=== PATIENT | female | born 1990 | race Caucasian/White ===

== ENCOUNTER 2016-12-22 22:12 | Emergency (ER) | payer SELFPAY ==
[~2016-12-22] VITALS: Ht 160 cm; Wt 52.0 kg
[~2016-12-22 22:12] MED LIST: BUTA1CAP PO; FERR325T PO; IBUP-232 PO
[2016-12-22 22:18] VITALS: BP 134/71; PULSE 126; RESP 18; O2SAT 96
== END 2016-12-22 22:27 | disposition left against medical advice (07) ==
LOC: PHED 22:12
DX: R11.10 Vomiting, unspecified (principal); R10.9 Unspecified abdominal pain
CPT/HCPCS: 99281

== ENCOUNTER 2017-01-26 15:45 | Emergency (ER) | payer MEDICAID ==
[~2017-01-26] VITALS: Ht 162.6 cm; Wt 49.3 kg
[2017-01-26 15:50] VITALS: BP 114/80; PULSE 87; RESP 16; TEMP 97.9; O2SAT 99
[2017-01-26] MEDS ORDERED: SODIUM CHLOR 0.9% 1000 ML INJ 1,000 ML IV SCH (16:11)
[2017-01-26] MEDS ORDERED: SODIUM CHLORIDE 0.9% FLUSH 10 ML FLUSH IV FLUSH PRN (16:15)
--- NOTE | 2017-01-26 16:17 | PD ---
HPI Chief Complaint: Abdominal Pain Time Seen by Provider: 16:07 Travel History International Travel<30 days: No Contact w/Intl Traveler<30days: No Traveled to known affect area: No History of Present Illness HPI 26-year-old female with history of migraine headaches, seizures, presents to the ER today because she has had a one-month history of intermittent headaches, nausea, lightheadedness, right lower quadrant abdominal pains intermittently, and general weakness. She states that the headaches are not unusual for her. Headache is currently an 8 out of 10. She denies any stiff neck, fevers, diarrhea, or any other symptoms. She does not know any exacerbating or alleviating factors. Her states that she had a baby in September and had been told that she was anemic, and has recently been retaking her iron pills and vitamins, but states that the headaches are not getting better. Modifying Factors: None Associated Signs & Symptoms: Intermittent headaches, nausea, lightheadedness, right sided abdominal discomfort, general weakness Risk Factors: History of migraine headaches PFSH Past Medical History Blood Disorders: No Anxiety: Yes Depression: Yes Diminished Hearing: No Neurologic: Yes (SEIZURE 10/11/14) Seizures: Yes Influenza Vaccination: Yes ?: Not LMP: 01/22/17 : 2 Para: 2 Past Surgical History Eye Surgery: Yes (LEFT PROSTHETIC) Social History Alcohol Use: No Tobacco Use: Yes (1-2 cigs/day) Substance Use: No Allergies-Medications (Allergen,Severity, Reaction): Coded Allergies: Fioricet (Verified Allergy, Intermediate, mood swings, combativness, ) Phenergan (Verified Allergy, Unknown, 01/26/17) Reglan (Verified Allergy, Unknown, 01/26/17) Reported Meds & Prescriptions Reported Meds & Active Scripts Active No Active Prescriptions or Reported Medications Review of Systems Except as stated in HPI: all other systems reviewed are Neg Physical Exam Narrative GENERAL: Young white female patient currently none acute distress. She is awake , alert, oriented 3. Well-developed. No photophobia. SKIN: Focused skin assessment warm/dry. HEAD: Atraumatic. Normocephalic. EYES: Left eye prosthesis. No scleral icterus. No injection or drainage. ENT: No nasal bleeding or discharge. Mucous membranes pink and moist. NECK: Trachea midline. No JVD. CARDIOVASCULAR: Regular rate and rhythm. No murmur appreciated. RESPIRATORY: No accessory muscle use. Clear to auscultation. Breath sounds equal bilaterally. GASTROINTESTINAL: Abdomen soft, non-tender, nondistended. Hepatic and splenic margins not palpable. Benign. MUSCULOSKELETAL: No obvious deformities. No clubbing. No cyanosis. No edema. NEUROLOGICAL: Awake and alert. No obvious cranial nerve deficits. Motor grossly within normal limits. Normal speech. PSYCHIATRIC: Appropriate mood and affect; insight and judgment normal. Data Data Last Documented VS Vital Signs Date Time Temp Pulse Resp B/P Pulse Ox O2 Delivery O2 Flow Rate FiO2 01/26/17 16:30 96 Room Air 01/26/17 15:50 97.9 87 16 114/80 Orders Complete Blood Count With Diff (01/26/17 16:11) Comprehensive Metabolic Panel (01/26/17 16:11) Lipase (01/26/17 16:11) Urinalysis - C+S If Indicated (01/26/17 16:11) Iv Access Insert/Monitor (01/26/17 16:11) Ecg Monitoring (01/26/17 16:11) Oximetry (01/26/17 16:11) Sodium Chlor 0.9% 1000 Ml Inj (Ns 1000 M (01/26/17 16:11) Sodium Chloride 0.9% Flush (Ns Flush) (01/26/17 16:15) Ed Urine Pregnancytest Poc (01/26/17 16:11) Ketorolac Inj (Toradol Inj) (01/26/17 17:00) Labs Laboratory Tests Test 01/26/17 01/26/17 16:23 16:28 Urine Color YELLOW Urine Turbidity CLEAR Urine pH 6.0 Urine Specific [place] 1.007 Urine Protein NEG mg/dL Urine Glucose (UA) NEG mg/dL Urine Ketones NEG mg/dL Urine Occult Blood LARGE Urine Nitrite NEG Urine Bilirubin NEG Urine Leukocyte Esterase NEG Urine WBC 0-2 /hpf Urine Squamous Epithelial 0-5 /hpf Cells Microscopic Urinalysis Comment CULT NOT INDICATED White Blood Count 10.1 TH/MM3 Red Blood Count 3.96 MIL/MM3 Hemoglobin 12.3 GM/DL Hematocrit 35.8 % Mean Corpuscular Volume 90.6 FL Mean Corpuscular Hemoglobin 31.1 PG Mean Corpuscular Hemoglobin 34.3 % Concent Red Cell Distribution Width 13.6 % Platelet Count 299 TH/MM3 Mean Platelet Volume 7.6 FL Neutrophils (%) (Auto) 52.8 % Lymphocytes (%) (Auto) 40.3 % Monocytes (%) (Auto) 4.1 % Eosinophils (%) (Auto) 0.6 % Basophils (%) (Auto) 2.2 % Neutrophils # (Auto) 5.3 TH/MM3 Lymphocytes # (Auto) 4.1 TH/MM3 Monocytes # (Auto) 0.4 TH/MM3 Eosinophils # (Auto) 0.1 TH/MM3 Basophils # (Auto) 0.2 TH/MM3 CBC Comment DIFF FINAL Differential Comment Sodium Level 140 MEQ/L Potassium Level 3.8 MEQ/L Chloride Level 105 MEQ/L Carbon Dioxide Level 25.1 MEQ/L Anion Gap 10 MEQ/L Blood Urea Nitrogen 11 MG/DL Creatinine 0.67 MG/DL Estimat Glomerular Filtration 107 ML/MIN Rate Random Glucose 88 MG/DL Calcium Level 8.8 MG/DL Total Bilirubin 0.3 MG/DL Aspartate Amino Transf 14 U/L (AST/SGOT) Alanine Aminotransferase 15 U/L (ALT/SGPT) Alkaline Phosphatase 58 U/L Total Protein 7.7 GM/DL Albumin 4.0 GM/DL Lipase 194 U/L MDM Medical Decision Making Medical Screen Exam Complete: Yes Emergency Medical Condition: Yes Medical Record Reviewed: Yes Interpretation(s) Laboratory Tests Test 01/26/17 01/26/17 16:23 16:28 Urine Occult Blood LARGE (NEG) Red Blood Count 3.96 MIL/MM3 (4.00-5.30) Basophils (%) (Auto) 2.2 % (0.0-2.0) Aspartate Amino Transf 14 U/L (15-37) (AST/SGOT) Differential Diagnosis Headaches, nausea, malaise, right sided abdominal painmigraine headaches versus viral syndrome versus UTI versus acute intra-abdominal processes Narrative Course Abdomen is benign and I do not suspect an acute intra-abdominal process. Her lab work did not show significant signs of dehydration, electrolyte abnormalities, or significant anemia. At this point, my plan would be to release her with follow-up to primary care physician. Return for any worsening in symptoms as necessary. She was given Toradol, and IV fluids in the ER and had no further episodes of vomiting in the ER. Symptoms are likely secondary to migraine headaches. Return for any worsening in symptoms as necessary. The plan has been discussed with her and she states understanding. Diagnosis Primary Impression: Migraine headache Med/Other Pt SpecificInfo: Prescription(s) given Scripts Ondansetron Odt (Zofran Odt)4 Mg Tab4 Mg SL Q6HR PRN (Nausea/Vomiting) #7 TAB Ref 0 Prov:Saw Norton MD 01/26/17 Ibuprofen (Motrin Ib)200 Mg [id number] Mg PO Q6H PRN (PAIN SCALE 1 TO 10) #21 TAB Ref 0 Prov:Swa Norton MD 01/26/17 Disposition: 01 DISCHARGE HOME Condition: Stable Saw Norton MD Jan 26, 2017 16:17
[2017-01-26 16:30] VITALS: O2SAT 96
[2017-01-26 16:40] LABS: AUTOMATED NEUTROPHIL # 5.3 TH/MM3 (1.8-7.7); BASOPHIL # 0.2 TH/MM3 (0-0.2); BASOPHIL % 2.2 % (0.0-2.0); EOSINOPHIL # 0.1 TH/MM3 (0-0.4); EOSINOPHIL % 0.6 % (0.0-4.0); HEMATOCRIT 35.8 % (35.0-46.0); HEMO FLAGS DIFF FINAL; LYMPH % 40.3 % (9.0-44.0); LYMPHOCYTE # 4.1 TH/MM3 (1.0-4.8); MEAN CELL VOLUME 90.6 FL (80.0-100.0); MEAN CORPUSCULAR HEMOGLOBIN 31.1 PG (27.0-34.0); MEAN CORPUSCULAR HGB CONC 34.3 % (32.0-36.0); MONO % 4.1 % (0.0-8.0); NEUT % 52.8 % (16.0-70.0); PLATELET COUNT 299 TH/MM3 (150-450); RED BLOOD COUNT 3.96 MIL/MM3 (4.00-5.30); RED CELL DISTRIBUTION WIDTH 13.6 % (11.6-17.2); WHITE BLOOD COUNT 10.1 TH/MM3 (4.0-11.0)
[2017-01-26 16:41] LABS: BLOOD, URINE LARGE (NEG); GLUCOSE,URINE NEG (NEG); KETONE, URINE NEG (NEG); NITRITE,URINE NEG (NEG)
[2017-01-26 16:47] LABS: CHLORIDE 105 MEQ/L (98-107); POTASSIUM 3.8 MEQ/L (3.5-5.1); SODIUM (NA) 140 MEQ/L (136-145)
[2017-01-26 16:51] LABS: ANION GAP 10 MEQ/L (5-15); BICARBONATE 25.1 MEQ/L (21.0-32.0); BLOOD UREA NITROGEN 11 MG/DL (7-18)
[2017-01-26 16:53] LABS: URINE COLOR YELLOW (YELLW/STRAW)
[2017-01-26 16:54] LABS: ALT (GPT) 15 U/L (10-53); AST (GOT) 14 U/L (15-37); GLOMERULAR FILTRATION RATE 107 ML/MIN (>89)
[2017-01-26 16:55] LABS: TOTAL BILIRUBIN ADULT 0.3 MG/DL (0.2-1.0)
[2017-01-26 16:55] LABS: COMMENT (UR) CULT NOT INDICATED; CULTURE IF INDICATED CULT NOT INDICATED; SQUAMOUS EPITHELIAL CELL URINE 0-5 /hpf (0-5); WBC, URINE 0-2 /hpf (0-5)
[2017-01-26 16:57] LABS: ALKALINE PHOSPHATASE 58 U/L (45-117)
[2017-01-26] MEDS ORDERED: KETOROLAC TROMETHAMINE 30 MG/ML (IVP) VIAL IV PUSH ONE (17:00)
[2017-01-26] MEDS ORDERED: ZOFR4TAB3 SL (17:10)
[2017-01-26] MEDS ORDERED: MOTR200T4 PO (17:10)
== END 2017-01-26 17:33 | disposition home or self-care (01) ==
LOC: PHED 15:45
DX: G43.909 Migraine, unspecified, not intractable, without status migrainosus (principal); F17.210 Nicotine dependence, cigarettes, uncomplicated; F41.8 Other specified anxiety disorders
CPT/HCPCS: 80053; 81001; 83690; 84703; 85025; 96361; 96374; 99284; J1885; J7030

== ENCOUNTER 2017-09-27 12:41 | Emergency (ER) | payer SELFPAY ==
[~2017-09-27] VITALS: Ht 161.3 cm; Wt 48.7 kg
[~2017-09-27 12:41] MED LIST changes: -BUTA1CAP PO; -FERR325T PO; -IBUP-232 PO; +MOTR200T4 PO; +ZOFR4TAB3 SL
[2017-09-27 12:47] VITALS: BP 117/67; PULSE 74; RESP 16; TEMP 97.9; O2SAT 100
--- NOTE | 2017-09-27 14:40 | RADRPT ---
EXAM DATE/TIME: 09/27/2017 14:23 [facility] COMPARISON: No previous studies available for comparison. INDICATIONS : Right knee swollen and painful, no known injury. Limited ROM MEDICAL HISTORY : None. SURGICAL HISTORY : Eye ENCOUNTER: Initial ACUITY: 1 day PAIN SCORE: 8/10 LOCATION: Right knee FINDINGS: Four view examination of the right knee demonstrates no evidence of fracture or dislocation. Bony mi neralization is normal. The articular surfaces are intact. The suprapatellar soft tissues have a no rmal configuration. CONCLUSION: Unremarkable examination of the right knee. Alex Carrion MD on September 27, 2017 at 14:37 Board Certified Radiologist. This report was verified electronically.
--- NOTE | 2017-09-27 15:12 | RADRPT ---
EXAM DATE/TIME: 09/27/2017 14:48 [facility] COMPARISON: No previous studies available for comparison. INDICATIONS : Right leg pain. MEDICAL HISTORY : Right leg pain. Left eye infections. SURGICAL HISTORY : Left eye surgery. Left arm surgery. ENCOUNTER: Initial ACUITY: >1 year PAIN SCORE: 10/10 LOCATION: Right leg. TECHNIQUE: Venous ultrasound of the leg was performed from the inguinal ligament to the proximal calf. Real-cristobal e, color Doppler and spectral tracing, compression and augmentation techniques were used. FINDINGS: There is normal compressibility of the deep venous system from the inguinal region to the proximal ca lf. No echogenic clot is seen in the lumen of the common femoral, femoral, popliteal, and posterior tibial veins. There is a normal response of the venous system to proximal and distal augmentation an d respiration. CONCLUSION: Normal examination. Large Flores's cyst in the medial knee measuring 4.4 x 1.8 x 1.7 cm. Alex Carrion MD on September 27, 2017 at 15:09 Board Certified Radiologist. This report was verified electronically.
--- NOTE | 2017-09-27 15:26 | PD ---
HPI Chief Complaint: Musculoskeletal Complaint Time Seen by Provider: 13:45 Travel History International Travel<30 days: No Contact w/Intl Traveler<30days: No Traveled to known affect area: No History of Present Illness HPI 27-year-old female patient presents emergency department for evaluation of right knee swelling and leg pain that started last night very patient states she has had issues with that knee since she was 15. Patient states she was given an order to get a right knee x-ray from her primary care however she was unable to afford it. Last night the right knee spontaneously became edematous and warm to touch. She denies any fever, chills, shortness breath, chest pain, nausea, vomiting, diarrhea. Right leg is neurovascularly intact. Patient has full range of motion of right knee despite pain associated with movement. PFSH Past Medical History Blood Disorders: No Anxiety: Yes Depression: Yes Diminished Hearing: No Neurologic: Yes (SEIZURE 10/11/14) Seizures: Yes ?: Not : 2 Para: 2 Past Surgical History Eye Surgery: Yes (LEFT PROSTHETIC) Social History Alcohol Use: No Tobacco Use: Yes (6 cig/day) Substance Use: No Allergies-Medications (Allergen,Severity, Reaction): Coded Allergies: acetaminophen (Unverified Allergy, Intermediate, mood swings, combativness , 09/27/17) butalbital (Unverified Allergy, Intermediate, mood swings, combativness, 09/27/17) caffeine (Unverified Allergy, Intermediate, mood swings, combativness, ) metoclopramide (Unverified Allergy, Unknown, 09/27/17) promethazine (Unverified Allergy, Unknown, 09/27/17) Reported Meds & Prescriptions Reported Meds & Active Scripts Active No Active Prescriptions or Reported Medications Review of Systems Except as stated in HPI: all other systems reviewed are Neg Physical Exam Narrative GENERAL: Well-nourished, well-developed 27-year-old female patient in no acute distress. Nontoxic appearing. SKIN: Focused skin assessment warm/dry. HEAD: Normocephalic. Atraumatic. EYES: No scleral icterus. No injection or drainage. NECK: Supple, trachea midline. No JVD or lymphadenopathy. CARDIOVASCULAR: Regular rate and rhythm without murmurs, gallops, or rubs. RESPIRATORY: Breath sounds equal bilaterally. No accessory muscle use. GASTROINTESTINAL: Abdomen soft, non-tender, nondistended. MUSCULOSKELETAL: Full range of motion to right knee with flexion and extension. Right knee edematous and warm to the touch. No obvious deformity, ecchymosis or erythema.. BACK: Nontender without obvious deformity. No CVA tenderness. Data Data Last Documented VS Vital Signs Date Time Temp Pulse Resp B/P (MAP) Pulse Ox O2 Delivery O2 Flow Rate FiO2 09/27/17 12:47 97.9 74 16 117/67 (84) 100 Orders Orders Knee, Complete (4vws) (09/27/17 14:07) Ice/Cold Pack (09/27/17 14:07) Us Leg Venous Doppler (09/27/17 14:07) Splint Or Brace Apply/Monitor (09/27/17 15:27) Ed Discharge Order (09/27/17 15:27) MDM Medical Decision Making Medical Screen Exam Complete: Yes Emergency Medical Condition: Yes Differential Diagnosis Differential diagnoses include but not limited to right knee sprain, right knee strain, Flores cyst, DVT Narrative Course X-ray of the right knee ordered and pending. Ultrasound of the right leg ordered to rule out DVT. Ice applied to the right knee. X-ray of the right knee was unremarkable. Ultrasound shows large Flores cyst, no DVT. Patient discharged home with rice therapy instructions for the right knee, use of NSAIDs and given the name of the orthopedist information technology program manager to follow up with. Sven wrap applied to the right knee prior to discharge. Last Impressions Lower Extremity Ultrasound 09/27/17 1407 Signed Impressions: Service Date/Time: Wednesday, September 27, 2017 14:48 - CONCLUSION: Normal examination. Large Flores's cyst in the medial knee measuring 4.4 x 1.8 x 1.7 cm. Alex Carrion MD Knee X-Ray 09/27/17 1407 Signed Impressions: Service Date/Time: Wednesday, September 27, 2017 14:23 - CONCLUSION: Unremarkable examination of the right knee. Alex Carrion MD Diagnosis Primary Impression: Flores's cyst Qualified Codes: M71.21 - Synovial cyst of popliteal space [Flores], right knee Referrals: Mau Peralta MD call for appointment Patient Instructions: Bakers Cyst (ED), General Instructions Departure Forms: Tests/Procedures Additional Instructions: Please return to emergency department if your symptoms return or worsen. Follow up with your primary care provider. Rice therapy right knee, rest, ice, Sven wrap with activity and elevate with resting. May take [id number] ibuprofen or Tylenol as a for pain or swelling. Scripts No Active Prescriptions or Reported Meds Disposition: 01 DISCHARGE HOME Condition: Stable Dominique Rhodes Sep 27, 2017 15:26
== END 2017-09-27 15:32 | disposition home or self-care (01) ==
LOC: PHED 12:41 → PHEFT 15:32
DX: M71.21 Synovial cyst of popliteal space [Baker], right knee (principal); F17.210 Nicotine dependence, cigarettes, uncomplicated
CPT/HCPCS: 73564; 93971

== ENCOUNTER 2017-12-31 20:32 | Emergency (ER) | payer MEDICAID, OTHER ==
[~2017-12-31] VITALS: Ht 160 cm; Wt 60.0 kg
[2017-12-31 20:55] VITALS: BP 117/92; PULSE 93; RESP 16; TEMP 98.5; O2SAT 99
[2017-12-31] MEDS ORDERED: CLINDAMYCIN 600 MG/NS PREMIX 50 ML IV ONE (23:45)
[2017-12-31] MEDS ORDERED: SODIUM CHLOR 0.9% 1000 ML INJ 1,000 ML IV ONE (23:45)
[2017-12-31] MEDS ORDERED: KETOROLAC TROMETHAMINE 30 MG/ML (IVP) VIAL IV PUSH ONE (23:45)
[2017-12-31] MEDS ORDERED: CLEO300C2 PO (23:48)
--- NOTE | 2017-12-31 23:55 | PD ---
HPI Chief Complaint: Oral / Dental Pain or Problem Time Seen by Provider: 23:35 Travel History International Travel<30 days: No Contact w/Intl Traveler<30days: No Traveled to known affect area: No History of Present Illness HPI 27-year-old white female presents emergency department with complaints of dental abscess. Patient has had a history of severe periodontal disease for quite some time. She was seen by a dentist earlier today and was prescribed Augmentin. Patient has not filled her prescription as of yet. She went to [facility] and was seen and given 10 mg of Decadron IV and 1 Percocet 5 mg p.o. The patient and her significant other stated that she was not given any antibiotics and was advised to come directly to [facility] to be evaluated by an oral surgeon. The patient admits to increasing pain, facial swelling. Patient has difficulty opening her mouth to the pain. She has had no fever chills. No nausea vomiting. No abdominal pain. Symptoms are moderate. Worsened by dental disease. No alleviating factors. PFSH Past Medical History Blood Disorders: No Anxiety: Yes Depression: Yes Diminished Hearing: No Neurologic: Yes (SEIZURE 10/11/14) Immunizations Current: Yes Seizures: Yes Tetanus Vaccination: Unknown Influenza Vaccination: Yes ?: Not : 2 Para: 2 Past Surgical History Eye Surgery: Yes (LEFT PROSTHETIC) Social History Alcohol Use: No Tobacco Use: Yes (6 cig/day) Substance Use: No Allergies-Medications (Allergen,Severity, Reaction): Coded Allergies: acetaminophen (Unverified Allergy, Intermediate, mood swings, combativness , 12/31/17) butalbital (Unverified Allergy, Intermediate, mood swings, combativness, ) caffeine (Unverified Allergy, Intermediate, mood swings, combativness, ) metoclopramide (Unverified Allergy, Unknown, 12/31/17) promethazine (Unverified Allergy, Unknown, 12/31/17) Reported Meds & Prescriptions Reported Meds & Active Scripts Active Cleocin (Clindamycin HCl) 300 Mg Cap 300 Mg PO Q6H 10 Days Review of Systems Except as stated in HPI: all other systems reviewed are Neg Physical Exam Narrative GENERAL: Well-developed, well-nourished in no acute distress. Nontoxic appearing. HEAD: Patient has mild swelling of the right lower mandible. EYES: Pupils equal round and reactive. Extraocular motions intact. No scleral icterus. No injection or drainage. ENT: TMs clear without erythema. The external auditory canals clear. Nose: clear . Posterior pharynx is pink and moist. No tonsillar edema or exudate. Uvula midline. Airway patent. Patient has diffuse periodontal disease with all of her teeth decayed. She points to her right lower mandible in the area of her first and second molar as a source of her pain she has difficulty opening her mouth. She has mild trismus. The posterior pharynx and the floor of mouth appear normal. I see no obvious drainable abscess. Patient is handling her secretions well. NECK: Trachea midline.Supple, nontender, moves head freely. No central bony tenderness or spasm. CARDIOVASCULAR: Regular rate and rhythm without murmurs, gallops, or rubs. RESPIRATORY: Clear to auscultation. Breath sounds equal bilaterally. No wheezes , rales, or rhonchi. GASTROINTESTINAL: Abdomen soft, non-tender, nondistended. No hepato-splenomegaly , or palpable masses. No guarding. EXTREMITIES: No clubbing, cyanosis, or edema. No joint tenderness, effusion, or edema noted. BACK: Nontender without deformity or crepitance. No flank tenderness. Data Data Last Documented VS Vital Signs Date Time Temp Pulse Resp B/P (MAP) Pulse Ox O2 Delivery O2 Flow Rate FiO2 12/31/17 20:55 98.5 93 16 117/92 (100) 99 Orders Orders Iv Access Insert/Monitor (12/31/17 23:44) Ketorolac Inj (Toradol Inj) (12/31/17 23:45) Sodium Chlor 0.9% 1000 Ml Inj (Ns 1000 M (12/31/17 23:45) Clindamycin Inj (Cleocin Inj) (01/01/18 00:45) Dexamethasone Inj (Decadron Inj) (01/01/18 00:45) Ed Discharge Order (01/01/18 01:17) MDM Medical Decision Making Medical Screen Exam Complete: Yes Emergency Medical Condition: Yes Medical Record Reviewed: Yes Differential Diagnosis MDM: Moderate Differential diagnoses: Dental abscess, dental caries, osteitis, cellulitis Narrative Course IV access is obtained. Patient was given clindamycin 600 mg IV and Toradol 30 mg's IV. Patient does not look toxic. She has been resting comfortable. I do not believe the patient warrants inpatient management. The patient has a dentist as well as a primary care doctor. She is encouraged to see her doctor again tomorrow for recheck. She is given a prescription for clindamycin which she may fill in the morning. This is dental abscess Diagnosis Primary Impression: Dental abscess Patient Instructions: General Instructions Additional Instructions: Rest. [place] gargles. [place] oil on cotton balls. 3 Advil every 6 hours. Clindamycin. follow-up with a dentist tomorrow for recheck. And return to the ER if any problems. Med/Other Pt SpecificInfo: Prescription(s) given Scripts Clindamycin (Cleocin) 300 Mg Cap 300 MG PO Q6H for Infection for 10 Days, #40 CAP 0 Refills Prov: Te Bland MD 12/31/17 Disposition: 01 DISCHARGE HOME Condition: Stable Anoop Sharp Dec 31, 2017 23:55
[2018-01-01] MEDS ORDERED: CLINDAMYCIN 600 MG/NS 100 ML IV ONE ×2 (00:45)
[2018-01-01] MEDS ORDERED: DEXAMETHASONE SOD PHOS 4 MG/ML VIAL IV PUSH ONE (00:45)
== END 2018-01-01 01:53 | disposition home or self-care (01) ==
LOC: NEPD 20:32
DX: K04.7 Periapical abscess without sinus (principal); F17.210 Nicotine dependence, cigarettes, uncomplicated
CPT/HCPCS: 96374; 96375; 99284; J1100; J1885; J7030